=== PATIENT | female | born 1960 | race Hispanic/Latino ===

== ENCOUNTER 2018-01-09 09:48 | Day surgery (SDC) | payer MEDICARE ==
[2015-10-20 12:58] VITALS: BMI 37.4
[2018-01-09] MEDS ORDERED: Propofol 10 mg/ml Inj (20 ML) ONE (10:52)
[2018-01-09] MEDS ORDERED: Midazolam 2 MG/2 ML VIAL ONE (10:53)
[2018-01-09] MEDS ORDERED: Lactated Ringer's 500 ML IV ONE ×2 (11:45)
[2018-01-09 12:53] VITALS: PULSE 80; TEMP 99.1
[2018-01-09 13:21] VITALS: O2SAT 98
[2018-01-09 13:55] VITALS: BP 126/65; RESP 15
== END 2018-01-09 13:54 | disposition home or self-care (01) ==
LOC: C.ENDO 09:48
PROVIDERS: ATTEND Internal Medicine Gastroenterology
DX: K31.7 Polyp of stomach and duodenum (principal); Z12.11 Encounter for screening for malignant neoplasm of colon; K21.0 Gastro-esophageal reflux disease with esophagitis; K29.70 Gastritis, unspecified, without bleeding; Z80.0 Family history of malignant neoplasm of digestive organs; D12.0 Benign neoplasm of cecum; K64.0 First degree hemorrhoids
CPT/HCPCS: 43239; 43251; 45385; 82948; 88305; J2250; J2704; J7120